=== PATIENT | male | born 1970 | race Caucasian/White ===

== ENCOUNTER → 2020-07-20 | Outpatient (CLI) | payer OTHER ==
[2020-07-20 12:15] LABS: Basophils # (A) 0.1 k/uL (0-0.2); Basophils % (A) 1 %; Eosinophils # (A) 0.1 k/uL (0-0.7); Eosinophils % (A) 1 %; HCT 54.3 % (39.0-53.0); HGB 18.5 gm/dL (13.0-17.5); Lymphocytes # (A) 2.5 k/uL (1.0-4.8); Lymphocytes % (A) 27 %; MCH 33.4 pg (25.0-35.0); MCHC 34.1 g/dL (31.0-37.0); MCV 97.9 fL (80.0-100.0); Mean Platelet Volume 6.5; Monocytes # (A) 0.4 k/uL (0-1.0); Monocytes % (A) 4 %; Neutrophils # (A) 6.2 k/uL (1.3-7.7); Neutrophils % (A) 67 %; Platelet Count 340 k/uL (150-450); RBC 5.55 m/uL (4.30-5.90); RDW 13.6 % (11.5-15.5); WBC 9.3 k/uL (3.8-10.6)
[2020-07-20 13:50] LABS: Erythrocyte Sedimentation Rate 2 mm/hr (0-15)
[2020-07-20 21:12] LABS: C Reactive Protein <0.4 mg/dL (0.0-0.8); Rheumatoid Factor, Qnt 6 IU/mL (0-15); Uric Acid 11.2 mg/dL (3.7-8.7)
[2020-07-22 06:24] LABS: HLA B27 NEGATIVE
== END | disposition home or self-care (01) ==
LOC: LABWHC1 11:07
PROVIDERS: ATTEND Orthopaedic Surgery
DX: M25.50 Pain in unspecified joint (principal)
CPT/HCPCS: 36415; 84550; 85025; 85652; 86038; 86140; 86431; 86812

== ENCOUNTER → 2020-08-06 | Outpatient (CLI) | payer OTHER ==
--- NOTE | 2020-08-06 15:04 | MR ---
EXAMINATION TYPE: MR wrist RT wo con DATE OF EXAM: 08/06/2020 COMPARISON: None HISTORY: Rt wrist pain x 2 years Multiplanar multiecho imaging of the right wrist was performed with no contrast. There is narrowing of the intercarpal joint spaces. There is cystic changes through large area of the capitate bone. The scaphoid is intact. Lunate is intact. There is mild narrowing at the first carpom etacarpal joint. There is small joint effusion at the first carpometacarpal joint. The extensor and flexor tendons of the wrist appear intact. The distal radius and ulna appear intact. There is patchy mild increased signal in the triangular cartilage. There is moderate narrowing of th e joint space between the capitate and lunate. IMPRESSION: Moderate osteoarthritic changes between the capitate and lunate with large degenerative cyst formatio n in the capitate. There is more mild narrowing of the remainder of the intercarpal joint spaces. Mil d narrowing of the radiocarpal joint space. There is degenerative changes and small tears of the tria ngular cartilage. No acute bony abnormality. Osteoarthritis at the first carpometacarpal joint. Increased joint fluid a t the first carpometacarpal joint and the fifth and fourth carpometacarpal joints consistent with carlos e nonspecific synovitis..
== END | disposition home or self-care (01) ==
LOC: RADMRIMAIN 10:23
PROVIDERS: ATTEND Orthopaedic Surgery
DX: S63.501A Unspecified sprain of right wrist, initial encounter (principal); M19.031 Primary osteoarthritis, right wrist

== ENCOUNTER → 2021-05-06 | Outpatient (CLI) | payer OTHER ==
--- NOTE | 2021-05-06 09:30 | MR ---
EXAMINATION TYPE: MR knee LT wo con DATE OF EXAM: 05/06/2021 COMPARISON: Plain film 04/07/2021 HISTORY: Left knee pain. TECHNIQUE: Multiplanar, multisequence imaging of the left knee is performed without IV contrast. FINDINGS: MEDIAL MENISCUS: Abnormal increased signal is present within the posterior horn of the medial meniscu s, there is extension to the articular surface LATERAL MENISCUS: Anterior and posterior horns are intact without tear. CRUCIATE LIGAMENTS: The anterior and posterior cruciate ligaments are intact and unremarkable. COLLATERAL LIGAMENTS: The medial collateral ligament and lateral collateral ligament complex are inta ct and unremarkable. EXTENSOR MECHANISM: Visualized quadriceps and patellar tendons are intact. EFFUSION: There is a small joint effusion POPLITEAL CYST: Minimal/morton cyst suspected. 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 OTHER: No additional significant abnormality is appreciated. IMPRESSION: Tear the posterior horn the medial meniscus. Osteoarthritis. Small joint effusion.
== END | disposition home or self-care (01) ==
LOC: RADMRIMAIN 08:37
PROVIDERS: ATTEND Orthopaedic Surgery
DX: M23.322 Other meniscus derangements, posterior horn of medial meniscus, left knee (principal); M17.12 Unilateral primary osteoarthritis, left knee

== ENCOUNTER → 2024-10-23 | Outpatient (CLI) | payer OTHER ==
--- NOTE | 2024-10-23 11:26 | CTL ---
EXAMINATION TYPE: CT Low Dose Lung DATE OF EXAM: 10/23/2024 8:06 AM COMPARISON: None. CLINICAL INDICATION: Male, 53 years old with history of F17.210 nicotine dependence, PT SMOKES 1/2 PK /DAY, History of tobacco use. TECHNIQUE: Low dose computed tomography scan was performed through the chest at 1 mm thick sections a nd reconstructed images in multiple planes at 1 mm and [address] DLP: 98.4 mGycm, CT CTDI: 2.4 mGy, Automated exposure control for dose reduction was used. CT DIAGNOSTIC QUALITY: Satisfactory FINDINGS: The heart is normal size without pericardial effusion. LAD and RCA coronary calcifications are presen t. Aorta normal caliber with conventional arch vessel branching anatomy. No thoracic lymph adenopathy by CT size criteria. Mild diffuse bronchial wall thickening. Mild centrilobular groundglass nodularity in the upper lungs. Mild emphysematous change. Minimal biapical pleural parenchymal scarring. No consolidation or pleura l effusion. 5 mm lateral left basilar pulmonary nodule, axial image 276. Benign calcified granuloma subpleural lateral right lower lobe, axial image 199. Visualized upper abdomen shows no gross abnormality. Bones: No osseous destructive process. IMPRESSION: 1. Lung RADS Category 2 (benign appearance or behavior, <1% chance of malignancy); a 5 mm left basila r pulmonary nodule on baseline screening. 2. COPD with mild emphysema. 3. Subtle groundglass centrilobular groundglass nodularity in the upper lungs may be seen with respir atory bronchiolitis. Recommend smoking cessation. CT LUNG RAD AND CT CHEST RECOMMENDATION: Lung-Rad 2 Benign Appearance or Behavior: Continue annual sc reening with LDCT in 12 months. S Modifier (other clinically significant findings): None [facility], Workstation: [id number], 10/23/2024 11:24 AM
[2024-10-23 15:44] LABS: Basophils # (A) 0.07 X 10*3/uL (0.00-0.10); Basophils % (A) 1.2 %; Eosinophils # (A) 0.07 X 10*3/uL (0.04-0.35); Eosinophils % (A) 1.2 %; HCT 53.4 % (39.6-50.0); HGB 18.5 g/dL (13.0-17.0); Lymphocytes # (A) 2.52 X 10*3/uL (0.90-5.00); Lymphocytes % (A) 43.8 %; MCH 33.8 pg (27.0-32.0); MCHC 34.6 g/dL (32.0-37.0); MCV 97.4 FL (80.0-97.0); Monocytes # (A) 0.33 X 10*3/uL (0.20-1.00); Monocytes % (A) 5.7 %; NRBC Per 100 WBC 0 X 10*3/uL (0.00-0.01); Neutrophils # (A) 2.73 X 10*3/uL (1.80-7.70); Neutrophils % (A) 47.6 %; Platelet Count 281 X 10*3/uL (140-440); RBC 5.48 X 10*6/uL (4.40-5.60); RBC Morphology Normal (Normal); RDW 12.6 % (11.5-14.5); WBC 5.75 X 10*3/uL (4.50-10.00)
[2024-10-23 15:54] LABS: ALT 18 U/L (10-49); AST 19 U/L (14-35); Albumin 4.5 g/dL (3.8-4.9); Albumin/Globulin Ratio 1.73 Ratio (1.60-3.17); Alkaline Phosphatase 124 U/L (41-126); BUN/Creat Ratio 6.78 Ratio (12.00-20.00); Blood Urea Nitrogen 6.1 mg/dL (9.0-27.0); Calcium 9.5 mg/dL (8.7-10.3); Carbon Dioxide 27.7 mmol/L (21.6-31.8); Chloride 103 mmol/L (96-109); Chol/HDL Ratio 4.99 Ratio; Globulin 2.6 g/dL (1.6-3.3); Glucose 88 mg/dL (70-110); LDL Cholesterol,Calculated 100.3 mg/dL (0.0-131.0); Potassium 4.5 mmol/L (3.5-5.5); Sodium 142 mmol/L (135-145); Total Bilirubin 0.4 mg/dL (0.3-1.2); Total Protein 7.1 g/dL (6.2-8.2); Uric Acid 9.5 mg/dL (3.7-8.7)
== END | disposition home or self-care (01) ==
LOC: RADCTMAIN 07:44
PROVIDERS: ATTEND Emergency Medicine
DX: Z12.2 Encounter for screening for malignant neoplasm of respiratory organs (principal); Z00.00 Encounter for general adult medical examination without abnormal findings; F17.210 Nicotine dependence, cigarettes, uncomplicated; J44.9 Chronic obstructive pulmonary disease, unspecified; J43.9 Emphysema, unspecified; R91.1 Solitary pulmonary nodule; R91.8 Other nonspecific abnormal finding of lung field
CPT/HCPCS: 71271; 80053; 80061; 82306; 83036; 84443; 84550; 85025

== ENCOUNTER → 2024-11-04 | Outpatient (CLI) | payer OTHER ==
--- NOTE | 2024-11-04 08:45 | US ---
EXAMINATION TYPE: US liver DATE OF EXAM: 11/04/2024 COMPARISON: CT: 10/23/24 CLINICAL INDICATION: Male, 53 years old with history of F10.21 ALCHOLIC DEPENDENCE, REMISSION; alcoho lic dependence TECHNIQUE: Grayscale and color Doppler imaging of the right upper quadrant was performed. FINDINGS: EXAM MEASUREMENTS: Liver Length: 15.8 cm Gallbladder Wall: 0.13 cm CBD: 0.39 cm Right Kidney: 9.9 x 4.5 x 3.9 cm [employer] NOTES: Pancreas: slightly limited due to overlying bowel gas. Appears heterogeneous Liver: heterogeneous and slightly enlarged Gallbladder: wnl Evidence for sonographic Jin's sign: No CBD: wnl Right Kidney: wnl IMPRESSION: Hepatic steatosis with underlying hepatomegaly. [facility], , 11/04/2024 8:43 AM
== END | disposition home or self-care (01) ==
LOC: RADUSWWP 08:17
PROVIDERS: ATTEND Emergency Medicine
DX: K76.0 Fatty (change of) liver, not elsewhere classified (principal); R16.0 Hepatomegaly, not elsewhere classified; F10.21 Alcohol dependence, in remission
CPT/HCPCS: 76705